=== PATIENT | female | born 1980 | race Caucasian/White ===

== ENCOUNTER 2021-10-21 13:27 | Emergency (ER) | payer OTHER ==
[~2021-10-21] VITALS: Ht 160 cm; Wt 63.5 kg
[2021-10-21 15:03] VITALS: BP 103/70
== END 2021-10-21 15:03 | disposition left against medical advice (07) ==
LOC: M.ERS 13:27
DX: R05.9 Cough, unspecified (principal); R06.02 Shortness of breath; R51.9 Headache, unspecified; Z53.21 Procedure and treatment not carried out due to patient leaving prior to being seen by health care provider

== ENCOUNTER 2021-10-22 11:42 | Emergency (ER) | payer OTHER ==
[~2021-10-22] VITALS: Ht 160 cm; Wt 63.5 kg
[2021-10-22 11:56] VITALS: BP 130/76
== END 2021-10-22 12:15 | disposition left against medical advice (07) ==
LOC: M.ERS 11:42
DX: R06.02 Shortness of breath (principal); Z53.21 Procedure and treatment not carried out due to patient leaving prior to being seen by health care provider